=== PATIENT | male | born 1980 | race Caucasian/White ===

== ENCOUNTER 2018-02-04 17:14 | Emergency (ER) | payer SELFPAY ==
[~2018-02-04] VITALS: Ht 195.6 cm; Wt 127.3 kg
[2018-02-04] MEDS ORDERED: DEXAMETHASONE SOD PHOS 4 MG/ML 5 ML VIAL IM ONE (19:30)
[2018-02-04] MEDS ORDERED: FAMOTIDINE 20 MG TABLET PO ONE (19:30)
[2018-02-04] MEDS ORDERED: DiphenhydrAMINE HCL 25 MG CAPSULE PO ONE (19:30)
[2018-02-04 19:45] VITALS: BP 147/89
== END 2018-02-04 20:43 | disposition home or self-care (01) ==
LOC: EMS 17:16
DX: T78.1XXA Other adverse food reactions, not elsewhere classified, initial encounter (principal); X58.XXXA Exposure to other specified factors, initial encounter
CPT/HCPCS: 96372; 99283; J1100